=== PATIENT | male | born 2000 | race Caucasian/White ===

== ENCOUNTER 2022-10-15 11:12 | Emergency (ER) | payer BC ==
[~2022-10-15] VITALS: Ht 167.6 cm; Wt 81.6 kg
[2022-10-15 11:54] VITALS: BP_SYST 122
--- NOTE | 2022-10-15 11:54 | NUR ---
Patient triaged and placed in waiting room. VSS and patient appears in no acute distress at this time. Accompanied by SELF, awaiting available bed, and MD notified of need for MSE.
--- NOTE | 2022-10-15 11:55 | NUR ---
ER DR. CORDOVA EXAMINING PT IN TRIAGE
[2022-10-15] MEDS ORDERED: IBUP-1969 PO (12:28)
--- NOTE | 2022-10-15 14:04 | NUR ---
Patient given written and verbal discharge instructions and verbalizes understanding. ER MD discussed with patient the results and treatment provided. Patient in stable condition. ID arm band removed. Rx of IBUPROFEN given. Patient educated on pain management and to follow up with PMD. Pain Scale . Opportunity for questions provided and answered. Medication side effect fact sheet provided.
[2022-10-15 14:20] VITALS: BP_SYST 122
== END 2022-10-15 14:04 | disposition home or self-care (01) ==
LOC: SED 11:12
DX: S96.991A Other specified injury of unspecified muscle and tendon at ankle and foot level, right foot, initial encounter (principal); Z79.899 Other long term (current) drug therapy; X58.XXXA Exposure to other specified factors, initial encounter; Y93.89 Activity, other specified; Y92.89 Other specified places as the place of occurrence of the external cause; Y99.8 Other external cause status
CPT/HCPCS: 99284

== ENCOUNTER 2023-09-19 13:59 | Emergency (ER) | payer BC ==
[~2023-09-19] VITALS: Ht 172.7 cm; Wt 81.6 kg
[~2023-09-19 13:59] MED LIST: CEPH-548 PO; IBUP-1969 PO; SULF1TAB48 PO
[2023-09-19 14:21] VITALS: BP_SYST 135; PULSE 104; RESP 15; TEMP 98.1; O2SAT 97
[2023-09-19 14:38] LABS: BASOPHILS % (AUTO) 0.1 % (0.0-2.0); EOSINOPHILS # (AUTO) 0.1 K/uL (0.0-0.4); EOSINOPHILS % (AUTO) 0.7 % (0.0-4.0); HEMOGLOBIN 15.3 g/dL (14.0-18.0); LYMPHOCYTES # (AUTO) 0.9 K/uL (1.0-5.5); LYMPHOCYTES % (AUTO) 10.3 % (20.5-51.5); MEAN CORPUSCULAR HEMOGLOBIN 30 pg (27-31); MEAN CORPUSCULAR HGB CONC 35 % (32-36); MEAN CORPUSCULAR VOLUME 86 fL (79.0-98.0); MONOCYTES # (AUTO) 0.5 K/uL (0.0-1.0); MONOCYTES % (AUTO) 5.5 % (1.7-9.3); NEUTROPHILS % (AUTO) 83.4 % (40.0-70.0); PLATELET COUNT (AUTO) 330 K/uL (130-430); RED BLOOD CELL COUNT(AUTO) 5.13 MIL/uL (4.2-6.2); RED CELL DISTRIBUTION WIDTH 13.7 % (9.0-15.0); WHITE BLOOD COUNT (AUTO) 8.4 K/uL (4.8-10.8)
[2023-09-19 15:05] LABS: ANION GAP 11 (5-15); CALCIUM 8.4 mg/dL (8.4-11.0); CARBON DIOXIDE 26 mmol/L (23-29); CHLORIDE 101 mmol/L (98-107); CREATININE 1.01 mg/dL (0.55-1.30); GFR AFRICAN AMERICAN 118 mL/min (>90); SODIUM SERUM 138 mmol/L (136-145); UREA NITROGEN, BLOOD 17 mg/dL (8-21)
[2023-09-19 15:10] LABS: GFR NON AFRICAN-AMERICAN 97 mL/min (>90); GLUCOSE 445 mg/dL (74-106)
[2023-09-19 15:35] LABS: INFLUENZA TYPE A Negative (NEGATIVE); INFLUENZA TYPE B NEGATIVE (NEGATIVE)
[2023-09-19] MEDS: INSULIN REGULAR, HUMAN 10 UNITS/0.1 ML, 3 ML VIAL SUBCUT ONE (16:08)
[2023-09-19 16:26] VITALS: BP_SYST 135; PULSE 104; RESP 15; TEMP 98.1; O2SAT 97
== END 2023-09-19 16:28 | disposition home or self-care (01) ==
LOC: SED 13:59
DX: R07.89 Other chest pain (principal); Z20.822 Contact with and (suspected) exposure to COVID-19; Z79.899 Other long term (current) drug therapy
CPT/HCPCS: 99285; 71045; 87426; 80048; 85025; 84484; 36415; 93005; 96372; 87804 ×2; J1815

== ENCOUNTER 2024-05-10 19:44 | Emergency (ER) | payer BC ==
[~2024-05-10] VITALS: Ht 170.2 cm; Wt 81.6 kg
[2024-05-10 19:56] VITALS: BP_SYST 122; PULSE 115; RESP 18; TEMP 96.3; O2SAT 96
[2024-05-10] MEDS ORDERED: AUG875 PO (21:05)
== END 2024-05-10 21:12 | disposition home or self-care (01) ==
LOC: SED 19:44
DX: J02.9 Acute pharyngitis, unspecified (principal); R05.9 Cough, unspecified; E10.9 Type 1 diabetes mellitus without complications; Z79.899 Other long term (current) drug therapy; Z79.2 Long term (current) use of antibiotics
CPT/HCPCS: 99283